=== PATIENT | male | born 1950 | race Caucasian/White ===

== ENCOUNTER 2020-09-08 00:31 | Inpatient (IN) | payer MEDICARE ==
[~2020-09-08 00:31] MED LIST: LOVAZA1 GM PO; MVI PO; PRILOSEC20 MG PO
[2020-09-08 01:10] LABS: BASOPHIL 0.3 % (0-2); EOSINOPHIL 0.1 % (0-7); HCT 48.7 % (42.0-52.0); HGB 16.8 g/dl (13.2-18.0); LYMPHOCYTE 5.9 % (15-48); MCH 29.9 pg (25.0-31.0); MCHC 34.5 g/dL (32.0-36.0); MCV 86.7 fL (78.0-100.0); MONOCYTE 4.3 % (0-12); MPV 11.4 fL (6.0-9.5); NEUTROPHIL 89.1 % (41-80); NRBC 0; PLT 192 K/uL (150-400); RBC 5.62 M/uL (4.70-6.00); RDW 12.5 % (11.5-14.0); WBC 14.5 K/uL (4.0-10.5)
[2020-09-08 01:25] LABS: ALBUMIN 4.1 g/dL (3.4-5.0); BILIRUBIN - TOTAL 0.6 mg/dL (0.2-1.0); BUN/CREAT RATIO (CALC) 16.2 RATIO; CREATININE 1.05 mg/dL (0.67-1.17); GLOBULIN (CALCULATION) 4.1 g/dL; POTASSIUM 3.9 mmol/L (3.5-5.1); TOTAL PROTEIN 8.2 g/dL (6.4-8.2)
[2020-09-08 01:28] LABS: LACTIC ACID 1.6 mmol/L (0.4-1.9)
--- NOTE | 2020-09-08 06:29 | NUR ---
0605: PT RECEIVED ADMIT FROM ED. VSS. ORIENTED TO ROOM.
[2020-09-08] MEDS ORDERED: PRILOSEC20 MG PO (06:44)
[2020-09-08] MEDS ORDERED: LOVAZA1 GM PO (06:44)
[2020-09-08] MEDS ORDERED: DAILY-VITE1 EACH PO (06:46)
[2020-09-08 08:20] LABS: BASOPHIL 0.3 % (0-2); EOSINOPHIL 0 % (0-7); HCT 43.9 % (42.0-52.0); HGB 15.1 g/dl (13.2-18.0); LYMPHOCYTE 9.7 % (15-48); MCH 30.4 pg (25.0-31.0); MCHC 34.4 g/dL (32.0-36.0); MCV 88.3 fL (78.0-100.0); MONOCYTE 6.1 % (0-12); NEUTROPHIL 83.6 % (41-80); NRBC 0; PLT 173 K/uL (150-400); RBC 4.97 M/uL (4.70-6.00); RDW 12.7 % (11.5-14.0); WBC 11.7 K/uL (4.0-10.5)
[2020-09-09 06:26] LABS: BASOPHIL 0.7 % (0-2); EOSINOPHIL 2.1 % (0-7); HCT 43.5 % (42.0-52.0); HGB 14.6 g/dl (13.2-18.0); LYMPHOCYTE 22.4 % (15-48); MCH 30.1 pg (25.0-31.0); MCHC 33.6 g/dL (32.0-36.0); MCV 89.7 fL (78.0-100.0); MONOCYTE 11.8 % (0-12); MPV 11.6 fL (6.0-9.5); NEUTROPHIL 62.7 % (41-80); NRBC 0; PLT 160 K/uL (150-400); RBC 4.85 M/uL (4.70-6.00); RDW 12.5 % (11.5-14.0); WBC 7.1 K/uL (4.0-10.5)
[2020-09-09 06:42] LABS: BUN/CREAT RATIO (CALC) 16.5 RATIO; CREATININE 1.03 mg/dL (0.67-1.17); MAGNESIUM 1.8 mg/dL (1.8-2.4); POTASSIUM 3.6 mmol/L (3.5-5.1)
[2020-09-10 06:42] LABS: BASOPHIL 0.7 % (0-2); EOSINOPHIL 3.2 % (0-7); HCT 40.7 % (42.0-52.0); HGB 13.8 g/dl (13.2-18.0); LYMPHOCYTE 27.5 % (15-48); MCH 30.3 pg (25.0-31.0); MCHC 33.9 g/dL (32.0-36.0); MCV 89.3 fL (78.0-100.0); MONOCYTE 12.1 % (0-12); MPV 11.6 fL (6.0-9.5); NEUTROPHIL 56.2 % (41-80); NRBC 0; PLT 154 K/uL (150-400); RBC 4.56 M/uL (4.70-6.00); RDW 12.3 % (11.5-14.0)
[2020-09-10 07:03] LABS: BUN/CREAT RATIO (CALC) 18.9 RATIO; CREATININE 0.9 mg/dL (0.67-1.17); MAGNESIUM 1.7 mg/dL (1.8-2.4); POTASSIUM 3.5 mmol/L (3.5-5.1)
== END 2020-09-11 14:47 | disposition home or self-care (01) | DRG 389 ==
LOC: FER 00:31 → FMS 05:01
PROVIDERS: Emergency Medicine Emergency Medical Services; Nurse Practitioner; ADMIT Internal Medicine
DX: K56.609 Unspecified intestinal obstruction, unspecified as to partial versus complete obstruction (principal); Q43.3 Congenital malformations of intestinal fixation; Z20.822 Contact with and (suspected) exposure to COVID-19; Z85.828 Personal history of other malignant neoplasm of skin; Z98.890 Other specified postprocedural states; K21.9 Gastro-esophageal reflux disease without esophagitis
CPT/HCPCS: 36415; 74018; 80048; 80053; 83605; 83690; 83735; 84145; 84484; 85025; 93005; C9113; J1650; J2270; J2405; J3475; J7030; J7120; J7121; Q9967; U0002